=== PATIENT | male | born 1960 | race Caucasian/White ===

== ENCOUNTER 2021-04-10 05:37 | Day surgery (SDC) | payer BC, MEDICARE ==
[2021-04-10] MEDS ORDERED: Lactated Ringers 1,000 ML IV SCH (06:30)
[2021-04-10] MEDS ORDERED: DIPRIVAN 200 MG/20 ML IV ONE ×2 (07:10→07:33)
[2021-04-10] MEDS ORDERED: Versed 2 MG/2 ML Injection ONE (07:11)
--- NOTE | 2021-04-10 08:14 | OP ---
SURGERY DATE/TIME: 04/10/2021 0710 PREOPERATIVE DIAGNOSIS: Screening exam. POSTOPERATIVE DIAGNOSIS: Normal colon/poor prep. PROCEDURE: Colonoscopy. SURGEON: Dr. Gray. ANESTHESIA: MAC. Medications given by anesthesia department. HISTORY: The patient is a 60-year-old white male patient presenting now for screening colonoscopy. He reports he had a colonoscopy ten years ago which was normal. He was appraised of the risks of the procedure including the risk of perforation, phlebitis, untoward reaction to medication, bleeding and missed lesions. The patient verbalized his understanding and desired to have the procedure performed. DESCRIPTION OF PROCEDURE: The patient was given the medications by the anesthesia department. He had continuous pulse oximetry, ECG monitoring, intermittent blood pressure monitoring during the examination. He was placed in the left lateral decubitus position. A digital rectal examination was performed and revealed normal anal sphincter tone, no masses and normal prostate. The flexible Olympus pediatric colonoscope was used to intubate the rectum. A view of the colon was developed sequentially to the cecum. Upon insertion and withdrawal, including a retroflex view in the rectum, no mucosal lesions were encountered. The scope was removed from the patient who tolerated the procedure well and was sent back to OP recovery in good condition. The prep was noted to be poor.
[2021-04-10 08:42] VITALS: BP 132/83; PULSE 64; O2SAT 97
== END 2021-04-10 08:55 | disposition home or self-care (01) ==
LOC: SDC 05:37
PROVIDERS: ATTEND Family Medicine
DX: Z12.11 Encounter for screening for malignant neoplasm of colon (principal); E11.9 Type 2 diabetes mellitus without complications
CPT/HCPCS: 82947; 93005; J2250; J2704